=== PATIENT | female | born 1990 | race Asian ===

== ENCOUNTER → 2019-03-29 | Outpatient (CLI) | payer BC ==
[~2019-03-29] MED LIST: PNV1TABL76 PO
== END | disposition home or self-care (01) ==
LOC: LAB 15:04
PROVIDERS: ATTEND Obstetrics & Gynecology Obstetrics
DX: N91.2 Amenorrhea, unspecified (principal)
CPT/HCPCS: 36415; 84702

== ENCOUNTER → 2019-03-31 | Outpatient (CLI) | payer BC | END | disposition home or self-care (01) | LOC: US 17:14 | PROVIDERS: ATTEND Obstetrics & Gynecology Obstetrics | DX: O02.0 Blighted ovum and nonhydatidiform mole (principal); O26.899 Other specified pregnancy related conditions, unspecified trimester; Z3A.00 Weeks of gestation of pregnancy not specified | CPT/HCPCS: 36415; 76801; 84702 ==

== ENCOUNTER 2019-04-06 08:14 | Day surgery (SDC) | payer BC ==
[~2019-04-06] VITALS: Ht 160 cm; Wt 54.4 kg
[2019-04-06] MEDS ORDERED: LACTATED RINGERS 1,000 ML IV SCH (09:00)
[2019-04-06 09:29] LABS: CHLORIDE 104 mEq/L (98-107)
[2019-04-06 09:30] LABS: BASOPHILS % 0.5 % (0.0-2.0); EOSINOPHILS % 0.4 % (0.0-5.0); HEMATOCRIT. 39.3 % (36.0-48.0); HEMOGLOBIN. 13.6 g/dL (12.0-16.0); LYMPHOCYTES % 19.6 % (20.0-50.0); MEAN CORPUSCULAR HEMOGLOBIN 31.4 pg (28.0-32.0); MEAN CORPUSCULAR VOLUME 90.5 fL (81.0-99.0); MEAN PLATELET VOLUME 8.2 fl (7.4-10.4); MONOCYTES % 4.9 % (2.0-8.0); NEUTROPHILS % 74.6 % (40.0-76.0); PLATELET 275 x1000/uL (130-400); RED BLOOD CELL COUNT 4.34 mill/uL (4.2-5.4); RED CELL DISTRIBUTION WIDTH 12.7 % (11.6-14.6)
[2019-04-06 09:52] LABS: B-HCG QUANTITATIVE 2966 mIU/mL (<3)
[2019-04-06] MEDS ORDERED: PNV1TABL76 PO (10:13)
[2019-04-06] MEDS ORDERED: MIDAZOLAM HCL 2 MG/2 ML VIAL ONE (10:21)
[2019-04-06] MEDS ORDERED: METOCLOPRAMIDE HCL 10MG/2ML VIAL ONE (10:21)
[2019-04-06] MEDS ORDERED: PROPOFOL 200MG/20ML VIAL IV ONE (10:21)
[2019-04-06] MEDS ORDERED: ONDANSETRON HCL 4MG/2ML INJ ONE (10:21)
[2019-04-06] MEDS ORDERED: FENTANYL CITRATE/PF 50MCG/ML 2ML VIAL ONE (10:21)
[2019-04-06] MEDS ORDERED: GLYCOPYRROLATE 0.2 MG/ML 2ML VIAL ONE (10:21)
[2019-04-06] MEDS ORDERED: LIDOCAINE HCL/PF 1% 10 MG/ML 5ML VIAL ONE (10:21)
[2019-04-06] MEDS ORDERED: SUCCINYLCHOLINE CHLORIDE 200MG/10ML IV ONE (10:21)
[2019-04-06] MEDS ORDERED: OXYTOCIN 10 UNITS/ML 1ML ONE ×2 (10:32→10:33)
[2019-04-06] MEDS ORDERED: CEFAZOLIN SODIUM 1000MG/VIAL ONE (10:32)
[2019-04-06] MEDS ORDERED: METHYLERGONOVINE MALEATE 0.2 MG/ML ONE (10:34)
[2019-04-06] MEDS ORDERED: SODIUM CHLORIDE 0.9% 1,000 ML IV ONE (10:52)
[2019-04-06] MEDS ORDERED: MORPHINE SULFATE 2 MG/ML CPJ (NOT FOR IM USE) IV PRN (11:00)
[2019-04-06] MEDS ORDERED: HYDROMORPHONE HCL/PF 2MG/ML CPJ IV PRN (11:00)
[2019-04-06] MEDS ORDERED: ONDANSETRON HCL 4MG/2ML INJ IV PRN (11:00)
[2019-04-06] MEDS ORDERED: MEPERIDINE HCL/PF 25MG/ML CPJ IV PRN ×2 (11:00)
== END 2019-04-06 13:15 | disposition home or self-care (01) ==
LOC: OR 08:14
PROVIDERS: ATTEND Obstetrics & Gynecology Obstetrics
DX: O01.9 Hydatidiform mole, unspecified (principal); N93.9 Abnormal uterine and vaginal bleeding, unspecified; Z79.899 Other long term (current) drug therapy
CPT/HCPCS: 36415; 58120; 80048; 80076; 84443; 84702; 85025; 86900; 86901; 88307; J0330; J0690; J2210; J2250; J2405; J2704; J2765; J3010; J3490

== ENCOUNTER → 2019-04-15 | Outpatient (CLI) | payer BC | END | disposition home or self-care (01) | LOC: LAB 17:06 | PROVIDERS: ATTEND Obstetrics & Gynecology Obstetrics | DX: N92.1 Excessive and frequent menstruation with irregular cycle (principal) | CPT/HCPCS: 36415; 84702 ==

== ENCOUNTER → 2019-04-23 | Outpatient (CLI) | payer BC | END | disposition home or self-care (01) | LOC: LAB CL OP 17:59 | PROVIDERS: ATTEND Obstetrics & Gynecology Obstetrics | DX: N92.1 Excessive and frequent menstruation with irregular cycle (principal) | CPT/HCPCS: 36415; 84702 ==

== ENCOUNTER → 2019-04-30 | Outpatient (CLI) | payer BC | END | disposition home or self-care (01) | LOC: LAB 16:07 | PROVIDERS: ATTEND Obstetrics & Gynecology Obstetrics | DX: N92.1 Excessive and frequent menstruation with irregular cycle (principal) | CPT/HCPCS: 36415; 84702 ==

== ENCOUNTER → 2019-05-07 | Outpatient (CLI) | payer BC | END | disposition home or self-care (01) | LOC: LAB 16:45 | PROVIDERS: ATTEND Obstetrics & Gynecology Obstetrics | DX: N92.1 Excessive and frequent menstruation with irregular cycle (principal) | CPT/HCPCS: 36415; 84702 ==

== ENCOUNTER → 2019-05-14 | Day surgery (SDC) | payer BC | END | disposition home or self-care (01) | LOC: LAB 09:38 | PROVIDERS: ATTEND Obstetrics & Gynecology Obstetrics | DX: N92.1 Excessive and frequent menstruation with irregular cycle (principal); Z79.899 Other long term (current) drug therapy | CPT/HCPCS: 36415; 84702 ==

== ENCOUNTER → 2019-05-21 | Outpatient (CLI) | payer BC | END | disposition home or self-care (01) | LOC: LAB CL OP 10:02 | DX: N92.1 Excessive and frequent menstruation with irregular cycle (principal) | CPT/HCPCS: 36415; 84702 ==

== ENCOUNTER → 2019-06-18 | Outpatient (CLI) | payer BC | END | disposition home or self-care (01) | LOC: LAB 10:58 | PROVIDERS: ATTEND Obstetrics & Gynecology Obstetrics | DX: O01.1 Incomplete and partial hydatidiform mole (principal) | CPT/HCPCS: 36415; 84702 ==